=== PATIENT | male | born 1980 | race Caucasian/White ===

== ENCOUNTER 2019-11-11 07:57 | Outpatient (CLI) | payer OTHER ==
[2019-11-11] MEDS ORDERED: GADOBUTROL 15 MMOL/15 ML VIAL ONE (08:49)
[2019-11-11] MEDS ORDERED: GADOBUTROL 15 MMOL/15 ML VIAL IVP ONE (10:23)
--- NOTE | 2019-11-11 23:17 | MRI Report ---
Reason: TESTICULAR HYPOFUNCTION Procedure Date: 11/11/2019 Accession Number: [id number] / [id number] Procedure: MRI - Brain W/WO CPT Code: Final Report FULL RESULT: EXAM: MRI BRAIN AND PITUITARY WITHOUT AND WITH CONTRAST EXAM DATE: 11/11/2019 08:44 AM CLINICAL HISTORY: Testicular hypofunction. COMPARISON: None. TECHNIQUE: Multiplanar, multisequence T1-weighted and fluid-sensitive MR sequences of the brain and pituitary were performed before and after administration of intravenous contrast. Other: None. IV Contrast: 11 mL Gadavist. FINDINGS: Brain Volume: Normal for age. Parenchyma: No masses, infarcts, or hemorrhage. No white matter lesions identified. No abnormal enhancement. Pituitary: The pituitary gland is not enlarged and has a normal dorsal concave border. It demonstrates homogeneous enhancement on dynamic contrast enhanced images. The infundibulum is mildly deviated to the right. The optic chiasm, Meckel's cave, and cavernous sinuses are normal in appearance. Ventricles/Cisterns: No hydrocephalus. No abnormal extra-axial fluid collection or hemorrhage. Orbits: Symmetric and unremarkable. IAC: Symmetric and unremarkable. Vasculature: Normal signal flow void is seen in the major arterial structures at the skull base. The dural sinuses are patent and enhance normally. Sinuses: There is mild mucosal thickening in the left maxillary sinus. The mastoid sinuses are not opacified. Bones: No focal pathologic appearing marrow signal changes. IMPRESSION: 1. No acute infarct, intracranial mass lesion, or hemorrhage. 2. Normal pituitary gland. RADIA
== END 2019-11-11 07:58 | disposition home or self-care (01) ==
LOC: DI 07:57
PROVIDERS: ATTEND Student in an Organized Health Care Education/Training Program
DX: E29.1 Testicular hypofunction (principal)
CPT/HCPCS: 70553; A9585

== ENCOUNTER 2022-07-10 10:38 | Emergency (ER) | payer OTHER ==
[2022-07-10] MEDS ORDERED: KETOROLAC 60 MG/2 ML VIAL IM STA (12:52)
[2022-07-10] MEDS ORDERED: DEXAMETHASONE 10 MG/ML VIAL PO STA (12:52)
--- NOTE | 2022-07-10 13:18 | ED Physician Documentation ---
PD HPI BACK PAIN - Stated complaint Stated Complaint: BACK PX - Chief complaint Chief Complaint: Back Pain - History obtained from History obtained from: Patient - History of Present Illness Pain level max: 9 Pain level now: 9 Location: Right Quality: Pain, Sharp Associated symptoms: No: Fever, Weakness, Numbness, Incontinent of urine, Unable to urinate, Hematuria, Incontinent of stool Improves with: Rest Worsened by: Movement Contributing factors: No: Trauma, Anticoagulated, Cancer, IVDA - Additional information Additional information: Patient is a 41-year-old male, active [employer] who presents with back pain. This been ongoing for the last 9 years. Worse over the past several days. He has not seen his PCM recently for this. He states it is worse with movement, better with rest. Works on airplane engines. The pain radiates to the right side. Described as sharp. No numbness or tingling. No incontinence. No saddle anesthesia. Review of Systems Constitutional: denies: Fever, Chills Respiratory: denies: Cough GI: denies: Nausea, Vomiting, Diarrhea : denies: Incontinent Skin: denies: Rash Musculoskeletal: denies: Neck pain Neurologic: denies: Focal weakness, Numbness, Headache PD PAST MEDICAL HISTORY - Past Medical History Past Medical History: No - Present Medications Home Medications: Ambulatory Orders Medication Instructions Recorded Confirmed Ketorolac [Toradol] 10 mg PO Q6H PRN #20 tablet 07/10/22 predniSONE [Deltasone] 10 mg PO [id number] #42 tab 07/10/22 - Allergies Allergies/Adverse Reactions: Allergies Allergy/AdvReac Type Severity Reaction Status Date / Time No Known Drug Allergies Allergy Verified 07/10/22 10:57 - Social History Does the pt smoke?: No Smoking Status: Never smoker PD ED PE NORMAL - Vitals Vital signs reviewed: Yes - General General: Alert and oriented X 3, No acute distress - HEENT HEENT: Moist mucous membranes - Neck Neck: Supple, no meningeal sign - Cardiac Cardiac: RRR - Respiratory Respiratory: No respiratory distress, Clear bilaterally - Back Back: No spinal TTP, Other (No midline tenderness to palpation or percussion. There is paraspinal spasm right low lumbar.) - Derm Derm: Warm and dry - Extremities Extremities: No edema, No calf tenderness / cord - Neuro Neuro: Alert and oriented X 3, tube balancer 2-12 intact, No motor deficit, No sensory deficit, Normal speech, Other (Normal bilateral lower extremity patellar and ankle jerk reflexes. Normal great toe extension bilaterally. no saddle anesthesia) - Psych Psych: Normal mood, Normal affect Results - Vitals Vitals: Vital Signs - 24 hr 07/10/22 07/10/22 10:55 14:36 Temperature 36.4 C L Heart Rate 57 L 72 Respiratory 16 20 Rate Blood Pressure 135/73 H 126/78 O2 Saturation 100 98 Oxygen O2 Source Room air - Rads (name of study) Lumbar spine x-ray Radiology: Final report received, EMP read contemporaneously, See rad report (No acute abnormality) PD MEDICAL DECISION MAKING - ED course Complexity details: reviewed results, re-evaluated patient, considered diffe rential (No cauda equina, no spinal epidural abscess, no fracture, no aortic dissection or evidence of aneursym rupture), d/w patient ED course: No acute findings on x-ray. Pain well controlled with Toradol and Decadron. Patient feels much better. Appears to have lumbar radiculopathy. We will trial anti-inflammatories and steroids for home. [place]. No evidence of cauda equina, epidural abscess. Patient counseled regarding signs and symptoms for which I believe and urgent re-evaluation would be necessary. Patient with good understanding of and agreement to plan and is comfortable going home at this time This document was made in part using voice recognition software. While efforts are made to proofread this document, sound alike and grammatical errors may occur. Departure - Departure Disposition: 01 Home, Self Care Clinical Impression: Lumbar radiculopathy Condition: Good Instructions: ED Sciatica Follow-Up: your,doctor in 1 week [Other] Prescriptions: predniSONE [Deltasone] 10 mg PO [id number] #42 tab Ketorolac [Toradol] 10 mg PO Q6H PRN #20 tablet PRN Reason: back pain Comments: Please follow-up with your doctor for further care. Return if you worsen. Your lumbar spine films do not show any acute abnormalities today. It is recommended that you have an [place] of [place] Your prescriptions were sent to the [facility]. FINDINGS: Bones: 5 [id number] vertebrae are present. There is normal bony alignment. No vertebral body compression fractures. No suspicious bony lesions. Possible pars defect is noted at L5. If clinically indicated, nonemergent evaluation with oblique views may be obtained. Mild disc and moderate foraminal narrowing is noted at L5-S1. Soft tissues: Overlying bowel gas pattern is normal. No suspicious soft tissue calcifications. IMPRESSION: No visualized acute fracture or dislocation. However, occult injury cannot be excluded. Recommend short interval imaging follow-up in 7-10 days as clinically indicated for additional evaluation. Discharge Date/Time: 07/10/22 14:37
--- NOTE | 2022-07-10 14:08 | XRAY Report ---
PROCEDURE: Lumbar Spine 2 View INDICATIONS: R side pain, no injury, h/o L spine "compression" TECHNIQUE: 3 views of the lumbar spine were acquired. COMPARISON: None. FINDINGS: Bones: 5 [id number] vertebrae are present. There is normal bony alignment. No vertebral body compression fractures. No suspicious bony lesions. Possible pars defect is noted at L5. If clinical ly indicated, nonemergent evaluation with oblique views may be obtained. Mild disc and moderate andressa inal narrowing is noted at L5-S1. Soft tissues: Overlying bowel gas pattern is normal. No suspicious soft tissue calcifications. IMPRESSION: No visualized acute fracture or dislocation. However, occult injury cannot be excluded. Recommend short interval imaging follow-up in 7-10 days as clinically indicated for additional evalua tion. Reviewed by: Lila Hernandez MD on 07/10/2022 2:07 PM PDT Approved by: Lila Hernandez MD on 07/10/2022 2:07 PM PDT Station ID: [id number]
[2022-07-10 14:37] VITALS: BP 126/78
== END 2022-07-10 14:37 | disposition home or self-care (01) ==
LOC: ED 10:38
DX: M54.16 Radiculopathy, lumbar region (principal)
CPT/HCPCS: 96372; 99282; 99283

== ENCOUNTER 2023-04-30 12:37 | Outpatient (CLI) | payer OTHER ==
--- NOTE | 2023-04-30 15:24 | XRAY Report ---
PROCEDURE: Cervical Spine 2 View INDICATIONS: NECK PAIN CHRONIC TECHNIQUE: 3 view(s) of the cervical spine were acquired. COMPARISON: None. FINDINGS: Bones: No fractures or dislocations to the T1 level. The lateral masses of C1 appear intact on the odontoid view. No suspicious bony lesions. Minimal degenerative changes. Soft tissues: No prevertebral soft tissue swelling. IMPRESSION: Minimal degenerative changes. Reviewed by: Sourav Diaz MD on 04/30/2023 3:23 PM PDT Approved by: Sourav Diaz MD on 04/30/2023 3:23 PM PDT Station ID: [id number]
== END 2023-04-30 12:38 | disposition home or self-care (01) ==
LOC: DI.N 12:37
PROVIDERS: ATTEND Specialist
DX: M47.812 Spondylosis without myelopathy or radiculopathy, cervical region (principal)

== ENCOUNTER 2023-12-25 08:13 | Outpatient (CLI) | payer OTHER | END 2023-12-25 08:14 | disposition home or self-care (01) | LOC: DI 08:13 | PROVIDERS: ATTEND General Practice | DX: R01.1 Cardiac murmur, unspecified (principal); I51.7 Cardiomegaly; I87.8 Other specified disorders of veins | CPT/HCPCS: 93307 ==

== ENCOUNTER 2023-12-28 15:53 | Emergency (ER) | payer OTHER ==
[2023-12-28 16:05] VITALS: BP 150/80; O2SAT 98
--- NOTE | 2023-12-28 16:15 | ED Physician Documentation ---
PD HPI LOWER EXT INJURY - Stated complaint Stated Complaint: LT FOOT INJ - Chief complaint Chief Complaint: Wound - History obtained from History obtained from: Patient - History of Present Illness PD HPI LOW EXT INJURY LOCATION: Left, Foot (plantar aspect) Type of injury: Puncture wound (he states walking with bare feet in home and stepped on needle accidentally. He states he picked up foot, saw needle sticking out and pulled it out. Having pain with walking still into today. Concerned about tetanus booster, believes it is close to 10 years.) Timing - onset: Last night Timing - details: Abrupt onset, Still present Worsened by: Moving, Other (stepping with pressure in area hurts) Associated symptoms: Swelling. No: Weakness, Numbness Similar symptoms before: Has not had sx before Review of Systems Neurologic: denies: Focal weakness, Numbness PD PAST MEDICAL HISTORY - Past Medical History Past Medical History: No Psych: Depression, Anxiety - Past Surgical History Past Surgical History: No - Present Medications Home Medications: Ambulatory Orders Medication Instructions Recorded Confirmed Ketorolac [Toradol] 10 mg PO Q6H PRN #20 tablet 07/10/22 predniSONE [Deltasone] 10 mg PO [id number] #42 tab 07/10/22 - Allergies Allergies/Adverse Reactions: Allergies Allergy/AdvReac Type Severity Reaction Status Date / Time No Known Drug Allergies Allergy Verified 12/28/23 16:00 - Social History Does the pt smoke?: No Smoking Status: Never smoker Does the pt drink ETOH?: No Does the pt have substance abuse?: No - Immunizations Immunizations are current?: Yes - POLST Patient has POLST: No PD ED PE NORMAL - Vitals Vital signs reviewed: Yes - General General: Alert and oriented X 3, Well developed/nourished, Other (limping gait avoiding pressure to lateral arch of plantar area. ) - Derm Derm: Normal color, Warm and dry - Extremities Extremities: Other (left plantar foot with small closed puncture wound lateral arch area, with local tenderness and some local swelling. No sharp feeling for pt when I palpate around. No redness nor warmth. ) - Neuro Neuro: No motor deficit, No sensory deficit Results - Vitals Vitals: Vital Signs - 24 hr 12/28/23 16:00 Temperature 36.8 C Heart Rate 70 Respiratory 16 Rate Blood Pressure 150/80 H O2 Saturation 98 Oxygen O2 Source Room air Procedures - FB removal FB location: Subcutaneous FB removal preparation: Local anesthesia-specify Removal method: Other (small incision with #11 scalpel about 1 cm. Used forceps to probe under skin into subcut tissue. I felt I could twang on the FB with forceps tips at times but could not grab the FB to remove it. By xray, the end should have been directed toward the incision but may have angled.) FB removal aftercare: Unable to remove (bedside US by me did not visualize the FB orientation. I did not want to cause much damage of subcut tissue nor make too big of an incision, so attempt ceased after reasonable time of probing. Refer to Ortho.) PD Medical Decision Making - ED course Complexity details: considered differential (seemingly higher amount of pain walking on it for the mechanism. He believes the whole of the sewing needle came out when he removed it. Shared decision at my suggestion to get xray, which did show retained FB, oriented vertically from sole area. ), d/w patient Reviewed Lab Results: by the xray, the FB is oriented such that it will jab and toward the foot bones/muscle with each weight bearing, so I would say it should be removed. It does not need to be immediate, so refer to Ortho as I was not able to remove it with reasonable attempt in ED. Departure - Departure Disposition: 01 Home, Self Care Clinical Impression: Puncture wound of plantar aspect of foot, Need for tetanus booster, Acute foreign body of plantar aspect of foot Condition: Stable Record reviewed to determine appropriate education?: Yes Instructions: ED Foreign Body Soft Tissue Follow-Up: Orthopedic Care [Provider Group] Comments: You were given a tetanus booster here today. You can soak the foot periodically to promote any drainage that might come out from the puncture wound. Anti-inflammatory such as ibuprofen 2 or 3 times daily. Add Tylenol if needed. I would anticipate this feeling improved over the next couple of days. Recheck if signs of infection. There still is a portion of the needle however in the bottom of the foot pointing upward so it is in a position that would likely continue hurting with walking and weightbearing. I did make an attempt to remove it but could not find the tract of it amongst the web tissue of the foot. Better part of valor is not to because more damage there than is appropriate. As such I discontinued looking and have you follow-up with the orthopedic office. These can be explored and removed under better visual guidance such as fluoroscopy or ultrasound or such. Meanwhile light pressure on the foot. We can give you some crutches to have less weightbearing on their. Call tomorrow orthopedic office to arrange a follow-up in the next couple of days. Tylenol or ibuprofen as needed for pains. We did send you in with 4 pain pills tonight since the pharmacies would be closed. Forms: PCP List, Activity restrictions Discharge Date/Time: 12/28/23 18:55
[2023-12-28] MEDS ORDERED: IBUPROFEN 600 MG TABLET PO ONE (17:13)
[2023-12-28] MEDS ORDERED: ACETAMINOPHEN 500 MG TABLET PO ONE (17:13)
[2023-12-28] MEDS ORDERED: TETANUS/DIPHTHERIA/PERTUSSIS 0.5 ML SYRINGE IM ONE (17:13)
[2023-12-28] MEDS: TETANUS/DIPHTHERIA/PERTUSSIS 0.5 ML SYRINGE IM ONE (17:14)
[2023-12-28] MEDS: IBUPROFEN 600 MG TABLET PO STA (17:14)
[2023-12-28] MEDS: ACETAMINOPHEN 500 MG TABLET PO STA (17:14)
[2023-12-28] MEDS: HYDROcod/ACET 5/325 Prepack 4 PO STA (18:49)
--- NOTE | 2023-12-28 19:16 | XRAY Report ---
PROCEDURE: Foot 3+V LT INDICATIONS: stepped on nail TECHNIQUE: 3 views of the foot were acquired. COMPARISON: None. FINDINGS: Bones: A nail is seen adjacent to the fifth metatarsal. No displaced fracture. No dislocation. Soft tissues: Nail as above. Achilles insertional enthesopathy. IMPRESSION: Linear foreign body likely representing nail seen adjacent to the fifth metatarsal. No acute radiogra phic abnormality elsewhere. Reviewed by: José Miguel De La Fuente MD on 12/28/2023 7:15 PM PST Approved by: José Miguel De La Fuente MD on 12/28/2023 7:15 PM PST Station ID: [id number]
== END 2023-12-28 18:55 | disposition home or self-care (01) ==
LOC: ED 15:53
DX: S91.342A Puncture wound with foreign body, left foot, initial encounter (principal); W22.8XXA Striking against or struck by other objects, initial encounter; Y93.01 Activity, walking, marching and hiking; Y92.009 Unspecified place in unspecified non-institutional (private) residence as the place of occurrence of the external cause
CPT/HCPCS: 28190; 73630; 90471; 90715; 99283; 99284; A9270